=== PATIENT | female | born 1980 | race African-American/Black ===

== ENCOUNTER 2020-04-28 21:07 | Emergency (ER) | payer MEDICAID ==
[~2020-04-28] VITALS: Ht 175.3 cm; Wt 72.6 kg
[2020-04-28 21:24] VITALS: BP 129/82
--- NOTE | 2020-04-28 21:24 | NUR ---
ED Nurse Note: Pt ambulated to ED d/t headache going on for a week and a half, alopecia and bilateral shoulder pain. Pt denies any trauma. Pt also complains of scalp sores on her head. Pt said she took a fungal medication then her hair loss got worsen after finishing the treatment. Pt is A&Ox4, VSS, on RA, afebrile on triage.
--- NOTE | 2020-04-28 21:25 | NUR ---
ED Nurse Note: ERMD at bedside.
[2020-04-28] MEDS ORDERED: GRISEOFULVIN500 MG PO (21:57)
[2020-04-28 22:00] VITALS: BP 125/88
--- NOTE | 2020-04-28 22:00 | NUR ---
ER DISCHARGE NOTE: Patient is cleared to be discharged per ERMD, pt is aox4, on room air, with stable vital signs. pt was given dc and prescription instructions, pt was able to verbalize understanding, pt id band removed. pt is able to ambulate with steady gait. pt took all belongings.
--- NOTE | 2020-04-28 22:21 | Emergency Room Report ---
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 [employer]: No Patient History Last Menstrual Period: April 23 Now: No Nursing Documentation-[facility] Past Medical History: No History, Except For Physical Exam Vital Signs Date Time Temp Pulse Resp B/P (MAP) Pulse Ox O2 Delivery O2 Flow Rate FiO2 04/28/20 21:14 98.1 79 20 129/82 (98) 98 Room Air Medical Decision Making Diagnostic Impression: Primary Impression: Tinea capitis Last Vital Signs Date Time Temp Pulse Resp B/P (MAP) Pulse Ox O2 Delivery O2 Flow Rate FiO2 04/28/20 21:24 98.1 20 129/82 98 Room Air 04/28/20 21:14 79 Disposition: HOME, SELF-CARE Condition: Stable Scripts Griseofulvin,Microsize (GRISEOFULVIN) 500 Mg Tablet 500 MG PO DAILY, #30 TAB Prov: Chuy Cross MD 04/28/20 Patient Instructions: Scalp Ringworm, [id number] Additional Instructions: you need to followup with your health insurance adjuster. if you are going to continue the griseofulvin you need to have your liver function tests checked Chuy Cross MD Apr 28, 2020 22:21
== END 2020-04-28 22:00 | disposition home or self-care (01) ==
LOC: EMR 21:30
DX: B35.0 Tinea barbae and tinea capitis (principal)
CPT/HCPCS: 99282